=== PATIENT | male | born 1965 | race Two or more races ===

== ENCOUNTER 2024-06-07 21:18 | Inpatient (IN) | payer BC ==
[~2024-06-07] VITALS: Ht 177.8 cm; Wt 111.0 kg
[2024-06-08] VITALS (7 sets, daily range): BP systolic 146–185; BP diastolic 72–91; PULSE 93–101; RESP 16–18; TEMP 96.8–97.9; O2SAT 95–98
[2024-06-08] MEDS ORDERED: magnesium Cl slow-release 64mg tablet PO PRN (00:20)
[2024-06-08] MEDS ORDERED: potassium Cl 40MEQ/1/2NS 520ml 520 ML IV PRN (00:20)
[2024-06-08] MEDS ORDERED: magnesium sulf-water 2g/50mL 50 ML IV PRN (00:20)
[2024-06-08] MEDS ORDERED: magnesium sulf-water 4G/100mL 100 ML IV PRN (00:20)
[2024-06-08] MEDS ORDERED: potassium Cl 20 mEq SR tablet PO PRN ×2 (00:20)
[2024-06-08] MEDS ORDERED: magnesium hydroxide 30ml (MOM) UD suspension PO PRN (00:20)
[2024-06-08] MEDS ORDERED: mag hydrox/Alum hydrox/simeth 30ml oral suspension PO PRN (00:20)
[2024-06-08 00:23] LABS: BASOPHILS # (AUTO) 0.1 X10'3 (0-0.2); BASOPHILS % (AUTO) 1.2 % (0-1); EOSINOPHILS % (AUTO) 0.5 % (0-6); HEMATOCRIT 23.6 % (42.0-52.0); HEMOGLOBIN 7.9 g/dl (14.0-17.9); LYMPHOCYTES # (AUTO) 0.8 X10'3 (1.1-4.8); LYMPHOCYTES % (AUTO) 14.6 % (21-51); MEAN CORPUSCULAR HEMOGLOBIN 27.7 PG (27.0-31.0); MEAN CORPUSCULAR HGB CONC 33.4 g/dL (33.0-36.5); MEAN CORPUSCULAR VOLUME 83.2 FL (78-98); MEAN PLATELET VOLUME 7.8 FL (7.4-10.4); MONOCYTES # (AUTO) 0.6 X10'3 (0-0.9); MONOCYTES % (AUTO) 10.7 % (2-12); NEUTROPHILS # (AUTO) 4.2 X10'3 (1.8-7.7); PLATELET COUNT 220 X10'3 (140-440); RED BLOOD COUNT 2.83 X10'6 (4.70-6.10); RED CELL DISTRIBUTION WIDTH 14.6 % (11.5-14.5); WHITE BLOOD COUNT 5.7 X10'3 (4.5-11.0)
[2024-06-08] MEDS ORDERED: [UNRECOGNIZED DRUG - CODE] PO (00:32)
[2024-06-08] MEDS ORDERED: CHOL20002 PO (00:32)
[2024-06-08] MEDS ORDERED: FOLI1TAB27 PO (00:32)
[2024-06-08] MEDS ORDERED: SERT-434 PO (00:32)
[2024-06-08] MEDS ORDERED: FLO0.4C PO (00:32)
[2024-06-08] MEDS ORDERED: GABA300T28 (00:32)
[2024-06-08] MEDS ORDERED: CYAN-104 PO (00:32)
[2024-06-08] MEDS ORDERED: KEN0.1O TOP (00:32)
[2024-06-08] MEDS ORDERED: HYDR25TA90 PO (00:32)
[2024-06-08] MEDS ORDERED: AMLO5TAB16 PO (00:32)
[2024-06-08] MEDS ORDERED: LEVO50TA8 PO (00:32)
[2024-06-08] MEDS ORDERED: LOVA40TA2 PO (00:32)
[2024-06-08 00:33] LABS: ALBUMIN 3.3 G/DL (3.4-5.0); ANION GAP 15 (8-16); BLOOD UREA NITROGEN 97 MG/DL (7-18); BUN/CREATININE RATIO 17.2 (10.0-20.0); CHLORIDE 96 MMOL/L (99-107); CREATININE 5.64 MG/DL (0.60-1.10); GLUCOSE 201 MG/DL (70-104); POTASSIUM 5.7 MMOL/L (3.5-5.1); SODIUM 124 MMOL/L (135-145); eCRCL 14 ML/MIN; eGFR 10 ML/MIN
[2024-06-08] MEDS ORDERED: LORA10TA7 PO (00:33)
[2024-06-08 00:52] LABS: TOTAL CARBON DIOXIDE 12.8 MMOL/L (24-32)
[2024-06-08] MEDS ORDERED: dextrose 50%-water 50ml dispensing syringe IV PRN ×2 (00:55)
[2024-06-08] MEDS ORDERED: DEXTROSE 15 GM of carb/4 tabs (each vial/BOTTLE has 4 tablets) PO PRN (00:55)
[2024-06-08] MEDS ORDERED: glucagon, human recombinant 1mg kit SUBCUT PRN (00:55)
[2024-06-08] MEDS ORDERED: PERFLUTREN PROTEIN-A MICROSPHR (Optison) 0.22 MG/ML 3ML VIAL IV PRN (01:00)
[2024-06-08 01:07] LABS: MAGNESIUM 2.6 MG/DL (1.5-2.4); PHOSPHORUS 8.1 MG/DL (2.3-4.5)
[2024-06-08 01:14] LABS: HEMOGLOBIN A1C 8.3 % (4.5-6.2)
[2024-06-08 01:24] LABS: ANION GAP 16 (8-16); CHLORIDE 95 MMOL/L (99-107); POTASSIUM 5.6 MMOL/L (3.5-5.1); SODIUM 124 MMOL/L (135-145)
[2024-06-08] MEDS: albuterol 2.5 MG/3 ML nebule NEB SCH (01:30)
[2024-06-08 01:52] LABS: ABG BASE EXCESS -13.8 mmol/L (-2.0-3.0); ABG HCO3 11.5 mmol/L (21.0-28.0); ABG OXYGEN SATURATION 93.5 % (94.0-98.0); ABG PCO2 (T) 24.9 mmHg (35.0-48.0); ABG PH (T) 7.281 (7.350-7.450); ABG PO2 (T) 72.7 mmHg (83.0-108.0); ALLEN'S TEST POSITIVE; FCOHb 0.3 % (0.5-1.5); FHHb 6.5 % (0.0-5.0); FMetHb 0.1 % (0.0-1.5); FO2Hb 93.1 % (94.0-98.0); MODE ROOM AIR; TOTAL HEMOGLOBIN 8.4 G/dl (13.5-17.5)
[2024-06-08 02:09] LABS: TOTAL CARBON DIOXIDE 13.2 MMOL/L (24-32)
[2024-06-08] MEDS: sodium polystyrene sulfonate 15gm/60ml oral suspension PO ONE (02:12)
[2024-06-08] MEDS: acetaminophen 325mg tablet PO ONE (02:16)
[2024-06-08] MEDS: sodium bicarbonate (8.4%) 1 mEq/ml syringe IV ONE (02:34)
[2024-06-08] MEDS: CALCIUM GLUC 1gm/50ml NACL,iso 50 ML IV ONE (02:40)
[2024-06-08] MEDS: sodium bicarbonate (8.4%) inj. 150 MEQ in dextrose 5%-water 1,000 ML IV SCH (03:31)
[2024-06-08] MEDS: sodium polystyrene sulfonate 15gm/60ml oral suspension PO SCH ×2 (07:49→20:46)
[2024-06-08] MEDS: cyanocobalamin 500mcg tablet PO SCH (07:49)
[2024-06-08] MEDS: amLODIPine 5mg tablet PO SCH (07:50)
[2024-06-08] MEDS: levoTHYROXINE 25mcg tablet PO SCH (07:50)
[2024-06-08] MEDS: diltiazem CD 180mg cap (once-daily) PO SCH (07:50)
[2024-06-08] MEDS: cholecalciferol (vitamin D3) 1,000 unit (25mcg) tablet PO SCH (07:50)
[2024-06-08] MEDS: folic acid 1mg tablet PO SCH (07:56)
[2024-06-08] MEDS: K and/or MAG REPLACEMENT MC SCH (08:00)
[2024-06-08] MEDS ORDERED: LOVASTATIN PO SCH (08:00)
[2024-06-08] MEDS: heparin, porcine 5000 units/ml vial SQ SCH (08:00)
[2024-06-08] MEDS: INSULIN LISPRO 100 UNIT/ML INSULN.PEN MULTI-DOSE SQ SCH ×2 (08:03→20:52)
[2024-06-08] MEDS: atorvastatin 10mg tablet PO SCH (08:07)
[2024-06-08 09:05] LABS: OSMOLALITY 307 MOSM/K (280-300)
[2024-06-08 09:25] LABS: THYROID STIMULATING HORMONE 4.88 ulU/ml (0.34-4.50)
[2024-06-08] MEDS: sevelamer carbonate 0.8gm powder pkt PO SCH (09:26)
[2024-06-08] MEDS: albuterol 2.5 MG/3 ML nebule NEB ONE (10:15)
[2024-06-08] MEDS ORDERED: sodium bicarbonate 1meq/ml inj 150 ML in dextrose 5%-water 1,000 ML IV SCH (11:00)
[2024-06-08] MEDS: sodium bicarbonate 1meq/ml inj 150 ML in dextrose 5%-water 1,000 ML IV SCH (11:30)
[2024-06-08 11:50] LABS: ALBUMIN 3.2 G/DL (3.4-5.0); ANION GAP 17 (8-16); BLOOD UREA NITROGEN 97 MG/DL (7-18); BUN/CREATININE RATIO 17.7 (10.0-20.0); CALCIUM 8.2 MG/DL (8.5-10.1); CHLORIDE 95 MMOL/L (99-107); CREATININE 5.48 MG/DL (0.60-1.10); GLUCOSE 236 MG/DL (70-104); POTASSIUM 5.4 MMOL/L (3.5-5.1); SODIUM 126 MMOL/L (135-145); eCRCL 15 ML/MIN; eGFR 11 ML/MIN
[2024-06-08 11:51] LABS: TOTAL CARBON DIOXIDE 13.8 MMOL/L (24-32)
[2024-06-08] MEDS: LidoCAINE 2% Topical Jelly 11mL syringe (UROJET) TOP ONE (13:00)
[2024-06-08 13:38] LABS: ALBUMIN 3.2 G/DL (3.4-5.0); ALBUMIN/GLOBULIN RATIO 0.7 (1.1-1.5); BILIRUBIN,TOTAL 0.3 MG/DL (0.1-1.0); BLOOD UREA NITROGEN 98 MG/DL (7-18); BUN/CREATININE RATIO 18.1 (10.0-20.0); CALCIUM 8.4 MG/DL (8.5-10.1); CREATININE 5.42 MG/DL (0.60-1.10); eCRCL 15 ML/MIN; eGFR 11 ML/MIN
[2024-06-08 13:41] LABS: APTT 30 SECONDS (22-32); INR 1.1 INR; PROTHROMBIN TIME 11.4 SECONDS (9.0-12.0)
[2024-06-08 13:46] LABS: TOTAL CARBON DIOXIDE 14.1 MMOL/L (24-32)
[2024-06-08 13:48] LABS: ALANINE AMINOTRANSFERASE 13 U/L (12-78); ALKALINE PHOSPHATASE 168 IU/L (46-116); ANION GAP 15 (8-16); ASPARTATE AMINO TRANSFERASE 11 U/L (10-37); CHLORIDE 95 MMOL/L (99-107); GLUCOSE 239 MG/DL (70-104); POTASSIUM 5.3 MMOL/L (3.5-5.1); SODIUM 124 MMOL/L (135-145)
[2024-06-08 14:03] LABS: BILIRUBIN,URINE NEGATIVE (Neg); CLARITY,URINE CLEAR (Clear); COLOR,URINE YELLOW (Yellow); GLUCOSE, URINE 250 mg/dl (Neg); KETONES,URINE NEGATIVE (Neg); LEUKOCYTE ESTERASE ,URINE NEGATIVE (Neg); NITRITES, URINE NEGATIVE (Neg); OCCULT BLOOD,URINE NEGATIVE (Neg); PH,URINE 5.5 (4.8-8.0); PROTEIN,URINE 100 mg/dl (Neg); UROBILINOGEN,URINE 0.2 E.U/dL (0.2-1.0)
[2024-06-08 14:13] LABS: UA COLLECTION TYPE CLN CATCH MIDSTREAM
[2024-06-08 14:15] LABS: OSMOLALITY UA 315 MOSM/K (50-1400); SODIUM,URINE RANDOM < 15 MEQ/L; URINE AMPHETAMINE SCREEN NEGATIVE (Neg); URINE BARBITUATE SCREEN NEGATIVE (Neg); URINE BENZODIAZEPINES SCREEN NEGATIVE (Neg); URINE CANNABINOID SCREEN NEGATIVE (Neg); URINE COCAINE SCREEN NEGATIVE (Neg); URINE METHADONE SCREEN NEGATIVE (Neg); URINE OPIATE SCREEN NEGATIVE (Neg); URINE PHENCYCLIDINE SCREEN NEGATIVE (Neg)
[2024-06-08 14:22] LABS: SQUAMOUS EPITHELIAL CELL,UR NONE SEEN /LPF (FEW)
[2024-06-08 14:23] LABS: RBC,URINE 0-2 /HPF (0-2); WBC,URINE 0-4 /HPF (0-4)
[2024-06-08 14:26] LABS: BACTERIA,URINE FEW /HPF (Neg)
[2024-06-08 14:58] LABS: UA EOSINOPHILS NO EOS /HPF
[2024-06-08] MEDS ORDERED: sodium polystyrene sulfonate 15gm/60ml oral suspension PO ONE (20:00)
[2024-06-08 20:22] LABS: ALBUMIN 3.1 G/DL (3.4-5.0); ANION GAP 15 (8-16); BLOOD UREA NITROGEN 94 MG/DL (7-18); BUN/CREATININE RATIO 17.7 (10.0-20.0); CALCIUM 7.9 MG/DL (8.5-10.1); CHLORIDE 93 MMOL/L (99-107); CREATININE 5.31 MG/DL (0.60-1.10); GLUCOSE 277 MG/DL (70-104); SODIUM 126 MMOL/L (135-145); TOTAL CARBON DIOXIDE 18.5 MMOL/L (24-32); eCRCL 15 ML/MIN; eGFR 11 ML/MIN
[2024-06-08] MEDS: HYDROmorphone/PF 0.2 MG/ML SYRINGE IV PRN (20:47)
[2024-06-08] MEDS: insulin glargine (Lantus) pen - multi-dose SQ SCH (20:51)
[2024-06-08] MEDS ORDERED: insulin glargine (Lantus) pen - multi-dose SQ SCH (21:00)
[2024-06-08] MEDS: metoprolol tartrate 1mg/ml inj IV ONE (22:35)
[2024-06-09] VITALS (7 sets, daily range): BP systolic 131–141; BP diastolic 74–80; PULSE 101–108; RESP 16–18; TEMP 97.7–99; O2SAT 95–98
[2024-06-09] MEDS: lisinopril 20mg tablet PO ONE
[2024-06-09 06:31] LABS: BASOPHILS % (AUTO) 0.2 % (0-1); EOSINOPHILS # (AUTO) 0.1 X10'3 (0-0.9); EOSINOPHILS % (AUTO) 1.3 % (0-6); HEMATOCRIT 22.5 % (42.0-52.0); HEMOGLOBIN 7.5 g/dl (14.0-17.9); LYMPHOCYTES # (AUTO) 0.6 X10'3 (1.1-4.8); LYMPHOCYTES % (AUTO) 5.9 % (21-51); MEAN CORPUSCULAR HEMOGLOBIN 27.4 PG (27.0-31.0); MEAN CORPUSCULAR HGB CONC 33.4 g/dL (33.0-36.5); MEAN CORPUSCULAR VOLUME 81.8 FL (78-98); MEAN PLATELET VOLUME 7.5 FL (7.4-10.4); MONOCYTES # (AUTO) 0.9 X10'3 (0-0.9); MONOCYTES % (AUTO) 9.7 % (2-12); NEUTROPHILS % (AUTO) 82.9 % (42-75); PLATELET COUNT 214 X10'3 (140-440); RED BLOOD COUNT 2.74 X10'6 (4.70-6.10); RED CELL DISTRIBUTION WIDTH 14.9 % (11.5-14.5); WHITE BLOOD COUNT 9.6 X10'3 (4.5-11.0)
[2024-06-09 06:43] LABS: % IRON SATURATION 4 % (11-46); IRON 15 UG/DL (53-167); TOTAL IRON BINDING CAPACITY 342 UG/DL (259-388)
[2024-06-09 06:57] LABS: ALANINE AMINOTRANSFERASE 16 U/L (12-78); ALBUMIN 2.7 G/DL (3.4-5.0); ALBUMIN/GLOBULIN RATIO 0.6 (1.1-1.5); ALKALINE PHOSPHATASE 153 IU/L (46-116); ANION GAP 15 (8-16); ASPARTATE AMINO TRANSFERASE 15 U/L (10-37); BILIRUBIN,TOTAL 0.2 MG/DL (0.1-1.0); BLOOD UREA NITROGEN 93 MG/DL (7-18); BUN/CREATININE RATIO 19.3 (10.0-20.0); CALCIUM 7.6 MG/DL (8.5-10.1); CHLORIDE 97 MMOL/L (99-107); CHOL/HDL RATIO 2.5 (0.00-4.99); CHOLESTEROL 127 MG/DL (0-200); CREATINE KINASE 131 U/L (39-308); CREATININE 4.83 MG/DL (0.60-1.10); FERRITIN 24 NG/ML (26-388); GLUCOSE 68 MG/DL (70-104); HDL CHOLESTEROL 51 MG/DL (35-60); LACTATE DEHYDROGENASE 193 U/L (85-227); LDL CHOLESTEROL 61 MG/DL (50-100); MAGNESIUM 2.7 MG/DL (1.5-2.4); POTASSIUM 3.9 MMOL/L (3.5-5.1); SODIUM 129 MMOL/L (135-145); TOTAL CARBON DIOXIDE 16.7 MMOL/L (24-32); TRIGLYCERIDES 87 MG/DL (20-135); eCRCL 17 ML/MIN; eGFR 12 ML/MIN
[2024-06-09 07:05] LABS: THYROID STIMULATING HORMONE 4.03 ulU/ml (0.34-4.50)
[2024-06-09] MEDS: levoTHYROXINE 75mcg tablet PO SCH (08:23)
[2024-06-09] MEDS: acetaminophen 325mg tablet PO PRN ×2 (08:33→14:19)
[2024-06-09] MEDS: albuterol 2.5 MG/3 ML nebule NEB SCH (09:23)
[2024-06-09 12:55] LABS: OCCULT BLOOD STOOL NEGATIVE (Neg)
[2024-06-09 15:23] LABS: ALBUMIN 2.4 G/DL (3.4-5.0); ANION GAP 11 (8-16); BLOOD UREA NITROGEN 93 MG/DL (7-18); BUN/CREATININE RATIO 20.8 (10.0-20.0); CALCIUM 7.4 MG/DL (8.5-10.1); CHLORIDE 97 MMOL/L (99-107); CREATININE 4.48 MG/DL (0.60-1.10); GLUCOSE 122 MG/DL (70-104); POTASSIUM 3.6 MMOL/L (3.5-5.1); SODIUM 129 MMOL/L (135-145); TOTAL CARBON DIOXIDE 21.3 MMOL/L (24-32); eCRCL 18 ML/MIN; eGFR 14 ML/MIN
[2024-06-09] MEDS: INSULIN LISPRO 100 UNIT/ML INSULN.PEN MULTI-DOSE SQ SCH (17:00)
[2024-06-09] MEDS: furosemide 40mg/4ml inj IV ONE (17:30)
[2024-06-09] MEDS ORDERED: iron polysaccharide complex 150mg capsule PO SCH (20:00)
[2024-06-09] MEDS: metolazone 2.5mg tablet PO SCH (20:00)
[2024-06-09] MEDS: furosemide 10 MG/1 ML 10ml inj IV SCH (20:00)
[2024-06-09] MEDS: EPOETIN ALFA-EPBX 20,000 UNIT/ML 1 ML MDV SQ ONE (21:34)
[2024-06-09] MEDS: insulin glargine (Lantus) pen - multi-dose SQ SCH (21:42)
[2024-06-10] MEDS: ondansetron/PF 4mg/2ml inj IV PRN (00:16)
[2024-06-10 06:00] VITALS: BP 135/59; PULSE 104; RESP 16; TEMP 97.4; O2SAT 93
[2024-06-10 07:40] LABS: BASOPHILS % (AUTO) 0.3 % (0-1); EOSINOPHILS # (AUTO) 0.2 X10'3 (0-0.9); EOSINOPHILS % (AUTO) 1.9 % (0-6); HEMATOCRIT 24.4 % (42.0-52.0); HEMOGLOBIN 8.2 g/dl (14.0-17.9); LYMPHOCYTES # (AUTO) 0.6 X10'3 (1.1-4.8); LYMPHOCYTES % (AUTO) 6.5 % (21-51); MEAN CORPUSCULAR HEMOGLOBIN 27.8 PG (27.0-31.0); MEAN CORPUSCULAR HGB CONC 33.8 g/dL (33.0-36.5); MEAN CORPUSCULAR VOLUME 82.2 FL (78-98); MEAN PLATELET VOLUME 7.9 FL (7.4-10.4); MONOCYTES # (AUTO) 0.9 X10'3 (0-0.9); MONOCYTES % (AUTO) 9.8 % (2-12); NEUTROPHILS # (AUTO) 7.7 X10'3 (1.8-7.7); NEUTROPHILS % (AUTO) 81.5 % (42-75); PLATELET COUNT 238 X10'3 (140-440); RED BLOOD COUNT 2.97 X10'6 (4.70-6.10); RED CELL DISTRIBUTION WIDTH 15.1 % (11.5-14.5); WHITE BLOOD COUNT 9.4 X10'3 (4.5-11.0)
[2024-06-10 07:47] LABS: ALANINE AMINOTRANSFERASE 13 U/L (12-78); ALBUMIN 2.3 G/DL (3.4-5.0); ALBUMIN/GLOBULIN RATIO 0.6 (1.1-1.5); ALKALINE PHOSPHATASE 139 IU/L (46-116); ANION GAP 12 (8-16); ASPARTATE AMINO TRANSFERASE 16 U/L (10-37); BILIRUBIN,TOTAL 0.7 MG/DL (0.1-1.0); BLOOD UREA NITROGEN 87 MG/DL (7-18); BUN/CREATININE RATIO 21.3 (10.0-20.0); CALCIUM 7.1 MG/DL (8.5-10.1); CHLORIDE 100 MMOL/L (99-107); CREATININE 4.09 MG/DL (0.60-1.10); GLUCOSE 104 MG/DL (70-104); MAGNESIUM 2.4 MG/DL (1.5-2.4); PHOSPHORUS 6.7 MG/DL (2.3-4.5); POTASSIUM 3.7 MMOL/L (3.5-5.1); SODIUM 132 MMOL/L (135-145); TOTAL CARBON DIOXIDE 20.1 MMOL/L (24-32); TOTAL PROTEIN 6.2 G/DL (6.4-8.2); eCRCL 20 ML/MIN; eGFR 15 ML/MIN
[2024-06-10] MEDS: sodium bicarbonate 650mg tablet PO SCH (08:50)
[2024-06-10] MEDS: iron sucrose complex injection 200 MG in normal saline 100ml IV soln 100 ML IV SCH (08:52)
[2024-06-10 10:00] VITALS: BP 138/79; PULSE 102; RESP 13; TEMP 97.8; O2SAT 98
[2024-06-10 18:00] VITALS: BP 141/77; PULSE 94; RESP 17; TEMP 98.6; O2SAT 93
[2024-06-10 18:40] VITALS: PULSE 94; RESP 17; O2SAT 93
[2024-06-10 22:00] VITALS: BP 162/72; PULSE 100; RESP 16; TEMP 97.8; O2SAT 95
[2024-06-11 05:14] LABS: ANTISTREPTOLYSIN O AB 30.1 IU/mL (0.0-200.0); COMPLEMENT C3, SERUM 133 mg/dL (82-167); COMPLEMENT C4, SERUM 16 mg/dL (12-38); HBSAG SCREEN Negative (Negative); IMMUNOGLOBULIN A, QN, SERUM 326 mg/dL (90-386); IMMUNOGLOBULIN G, QN, SERUM 2001 mg/dL (603-1613); IMMUNOGLOBULIN M, QN, SERUM 49 mg/dL (20-172)
[2024-06-11 06:00] VITALS: BP 144/71; PULSE 107; RESP 16; TEMP 98.6; O2SAT 96
[2024-06-11 06:36] LABS: BASOPHILS % (AUTO) 0.2 % (0-1); EOSINOPHILS # (AUTO) 0.3 X10'3 (0-0.9); EOSINOPHILS % (AUTO) 3.2 % (0-6); HEMATOCRIT 23.9 % (42.0-52.0); HEMOGLOBIN 7.9 g/dl (14.0-17.9); LYMPHOCYTES # (AUTO) 1.2 X10'3 (1.1-4.8); LYMPHOCYTES % (AUTO) 14.7 % (21-51); MEAN CORPUSCULAR HGB CONC 33.1 g/dL (33.0-36.5); MEAN CORPUSCULAR VOLUME 81.6 FL (78-98); MEAN PLATELET VOLUME 7.1 FL (7.4-10.4); MONOCYTES # (AUTO) 0.9 X10'3 (0-0.9); MONOCYTES % (AUTO) 11.4 % (2-12); NEUTROPHILS # (AUTO) 5.7 X10'3 (1.8-7.7); NEUTROPHILS % (AUTO) 70.5 % (42-75); PLATELET COUNT 239 X10'3 (140-440); RED BLOOD COUNT 2.93 X10'6 (4.70-6.10); RED CELL DISTRIBUTION WIDTH 15.2 % (11.5-14.5)
[2024-06-11 06:50] LABS: ALANINE AMINOTRANSFERASE 15 U/L (12-78); ALBUMIN 2.3 G/DL (3.4-5.0); ALBUMIN/GLOBULIN RATIO 0.6 (1.1-1.5); ALKALINE PHOSPHATASE 139 IU/L (46-116); ANION GAP 10 (8-16); ASPARTATE AMINO TRANSFERASE 15 U/L (10-37); BILIRUBIN,TOTAL 0.2 MG/DL (0.1-1.0); BLOOD UREA NITROGEN 88 MG/DL (7-18); BUN/CREATININE RATIO 23.5 (10.0-20.0); CALCIUM 7.2 MG/DL (8.5-10.1); CHLORIDE 101 MMOL/L (99-107); CREATININE 3.75 MG/DL (0.60-1.10); GLUCOSE 90 MG/DL (70-104); MAGNESIUM 2.2 MG/DL (1.5-2.4); PHOSPHORUS 6.4 MG/DL (2.3-4.5); POTASSIUM 3.6 MMOL/L (3.5-5.1); SODIUM 134 MMOL/L (135-145); TOTAL CARBON DIOXIDE 22.8 MMOL/L (24-32); TOTAL PROTEIN 6.4 G/DL (6.4-8.2); eCRCL 22 ML/MIN; eGFR 17 ML/MIN
[2024-06-11] MEDS: DEXTROSE 15 GM of carb/4 tabs (each vial/BOTTLE has 4 tablets) PO PRN (07:45)
[2024-06-11 10:00] VITALS: BP 146/78; PULSE 103; RESP 16; TEMP 98.1; O2SAT 95
[2024-06-11 13:10] VITALS: RESP 16
[2024-06-11] MEDS ORDERED: sodium bicarbonate tablet PO ×2 (13:52→14:03)
[2024-06-11] MEDS ORDERED: FERR325T28 PO (13:52)
[2024-06-11] MEDS ORDERED: SEVE0.8P PO (13:52)
[2024-06-11] MEDS ORDERED: POTA20PA31 PO (13:58)
[2024-06-11] MEDS ORDERED: FURO-150 PO (13:58)
[2024-06-11] MEDS ORDERED: INSU100I31 SQ (14:48)
[2024-06-11] MEDS ORDERED: LANTUS SQ (14:48)
[2024-06-11] MEDS ORDERED: furosemide 40mg tablet PO SCH (20:00)
[2024-06-13] MEDS ORDERED: EMPA25TA PO (15:27)
== END 2024-06-11 19:00 | disposition home or self-care (01) | DRG 640 ==
LOC: ER 21:19 → ED HOLD 06-08 00:41 → ORTHO 4S 06-08 11:10
PROVIDERS: ADMIT Surgery; ATTEND Family Medicine
DX: E87.70 Fluid overload, unspecified (principal); N18.6 End stage renal disease; I12.0 Hypertensive chronic kidney disease with stage 5 chronic kidney disease or end stage renal disease; E87.5 Hyperkalemia; E87.1 Hypo-osmolality and hyponatremia; E87.20 Acidosis, unspecified; E87.3 Alkalosis; E11.22 Type 2 diabetes mellitus with diabetic chronic kidney disease; E78.5 Hyperlipidemia, unspecified; G89.29 Other chronic pain; M54.50 Low back pain, unspecified; E03.9 Hypothyroidism, unspecified; D64.9 Anemia, unspecified; E83.39 Other disorders of phosphorus metabolism; E83.51 Hypocalcemia; K76.0 Fatty (change of) liver, not elsewhere classified; E11.65 Type 2 diabetes mellitus with hyperglycemia; N50.89 Other specified disorders of the male genital organs; Z79.899 Other long term (current) drug therapy
CPT/HCPCS: 36415; 36600; 71045; 76700; 76705; 76770; 76870; 80048; 80051; 80053; 80061; 80305; 81001; 82140; 82272; 82330; 82550; 82570; 82728; 82784; 82803; 82948; 83036; 83540; 83550; 83615; 83735; 83930; 83935; 84100; 84133; 84156; 84300; 84439; 84443; 85018; 85025; 85610; 85651; 85730; 86038; 86060; 86160; 86334; 87081; 87207; 87340; 93005; 93306; 93976; 94640; 94760; 97116; 97161; 97530; 99291; A4314; A5200; A6253; G0378; J0610; J1171; J1644; J1756; J1815; J1940; J2405; J3490; J7070; Q4081